=== PATIENT | female | born 1960 | race American Indian/Alaskan Native ===

== ENCOUNTER 2021-11-21 05:44 | Day surgery (SDC) | payer BC ==
[2021-11-16 11:06] LABS: BUN/Creatinine Ratio 26; Blood Urea Nitrogen 26 mg/dL (7-17); Calcium 9.4 mg/dL (8.4-10.2); Hemolysis Index 1
[2021-11-16 11:37] LABS: Hematocrit 39.2 % (30.3-42.9); Hemoglobin 12.5 gm/dl (10.1-14.3); Mean Corpuscular HGB Conc 32 % (30-34); Mean Corpuscular Volume 83 fl (79-97); Platelet Count 333 K/mm3 (140-440); Red Blood Count 4.73 M/mm3 (3.65-5.03); Red Cell Distribution Width 14.8 % (13.2-15.2)
[2021-11-21] MEDS ORDERED: BACTERIOSTATIC SODIUM CHLORIDE 0.9% 30 ML VIAL INFILTRATI ONE (06:36)
[2021-11-21] MEDS ORDERED: LACTATED RINGERS 1,000 ML IV SCH (07:00)
[2021-11-21] MEDS ORDERED: SCOPOLAMINE TRANSDERMAL PATCH 72 HR TD NR (07:12)
--- NOTE | 2021-11-21 07:20 | Anesthesia Consultation ---
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 No FHAC.
--- NOTE | 2021-11-21 07:21 | Anesthesia Day of Surgery ---
Anesthesia Day of Surgery - Day of Surgery Patient Examined: Yes Patient H&P Reviewed: Yes Patient is NPO: Yes
[2021-11-21] MEDS ORDERED: SCOPOLAMINE TRANSDERMAL PATCH 72 HR TD ONE (07:30)
[2021-11-21] MEDS ORDERED: LIDOCAINE MPF (2%) 20 MG/1 ML VIAL 5 ML ONE (07:32)
[2021-11-21] MEDS ORDERED: dexAMETHasone 20 MG/5 ML VIAL ONE (07:32)
[2021-11-21] MEDS ORDERED: ONDANSETRON 4 MG/2 ML INJ ONE ×2 (07:32→10:40)
[2021-11-21] MEDS ORDERED: propofoL 200 MG/20 ML VIAL IV ONE (07:33)
[2021-11-21] MEDS ORDERED: HYDROmorphone 1 MG/1 ML INJ ONE (07:33)
[2021-11-21] MEDS ORDERED: ePHEDrine SULFATE 50 MG/1 ML INJ ONE (07:36)
[2021-11-21] MEDS ORDERED: BUPIVACAINE-EPINEPHRINE/PF 0.5%-1:200,000 (30 ML) VIAL INFILTRATI ONE (07:41)
[2021-11-21] MEDS ORDERED: BUPIVACAINE/PF (0.5%) 5 MG/1 ML 30 ML VIAL INFILTRATI ONE ×2 (07:41→08:21)
[2021-11-21] MEDS ORDERED: EPINEPHrine/PF 1 MG/1 ML INJ ONE (07:42)
[2021-11-21] MEDS ORDERED: FAMOTIDINE 20 MG/2 ML INJ IV ONE (07:54)
[2021-11-21] MEDS ORDERED: MIDAZOLAM 2 MG/2 ML INJ ONE (07:55)
[2021-11-21] MEDS ORDERED: ceFAZolin/STERILE WATER 2 GM/20 ML SYRINGE IV NR (08:00)
[2021-11-21] MEDS ORDERED: EPINEPHrine/PF 1 MG/1 ML INJ IV ONE (08:22)
[2021-11-21] MEDS ORDERED: SODIUM CHLORIDE 0.9% IRRIG SOLN 3000 ML IR ONE (08:22)
[2021-11-21] MEDS ORDERED: fentaNYL 100 MCG/2 ML INJ ONE (08:37)
--- NOTE | 2021-11-21 09:44 | Discharge Summary ---
Short Stay Discharge Plan Activity: no restrictions Weight Bearing Status: Weight Bear as Tolerated Diet: regular Wound: change dressing (Remove dressing in 48 hours) Follow up with: JODI RAYA [Other] - 7 Days MARY KRUEGER II, MD [Staff Physician] - 14 Days
--- NOTE | 2021-11-21 10:26 | Operative Report ---
DATE OF SURGERY: 11/21/2021 PREOPERATIVE DIAGNOSIS: Left knee lateral meniscus tear. POSTOPERATIVE DIAGNOSIS: Left knee lateral meniscus tear. PROCEDURE PERFORMED: Left knee partial lateral meniscectomy. SURGEON: Benji Ramos II, MD. FACE MAN: None. ANESTHESIA: General. COMPLICATIONS: None. DRAINS: None. SPECIMENS: None. TOURNIQUET TIME: 40 minutes. INDICATIONS: The patient is a 61-year-old female who has been having refractory pain in the left knee, including mechanical symptoms such as locking. After failing conservative treatment and obtaining an MRI scan the patient was noted to have a bucket handle tear of the lateral meniscus. It was recommended the patient undergo surgical management. Risks, benefits and limitations of surgery were discussed with the patient including bleeding, infection, injury to nerves, blood vessels, need for reoperation. The patient appeared to understand the risks and consented to undergo surgery. OPERATIVE FINDINGS: Include a displaced bucket handle tear of the discoid lateral meniscus. The medial meniscus appeared normal. 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 TECHNIQUE: In the preoperative holding area, site was marked with surgical marking pen. Extremity was prepped and draped in sterile fashion in a supine position. Standard anteromedial and anterolateral portals were placed and diagnostic arthroscopy was performed. The patellofemoral joint was noted to have grade 2 chondromalacia. The medial compartment appeared to be normal. ACL and PCL were intact. Lateral meniscus was visualized. There was noted to be a tear of the lateral meniscus. This was a horizontal tear. There was what appeared to be a previous discoid meniscus. The tear was reducible back into the back of the joint. There was noted to be some grade 2 chondromalacia of lateral tibial plateau. Decision was made to perform a lateral meniscectomy using an oscillating shaver and biter. The meniscus was debrided back to a stable rim. The arthroscope was then removed. Incisions were closed with 3-0 nylon. Portal sites were injected with 0.25% Marcaine plain. Arthroscope was removed. POSTOPERATIVE PLAN: The patient will be weightbear as tolerated. Physical therapy worked on range of motion exercises. I will see the patient back for a followup visit 2 weeks postop. TID: [id number] RECEIPT: [id number] ASI/DSD
[2021-11-21] MEDS ORDERED: ONDANSETRON 4 MG/2 ML INJ IV ONE (10:44)
[2021-11-21 11:25] VITALS: BP 134/58
--- NOTE | 2021-11-21 14:23 | Post Anesthesia Evaluation ---
- Post Anesthesia Evaluation Patient Participated: Yes Airway Patent: Yes Stable Respiratory Function: Yes Nausea/Vomiting: No Temp > 96.8F: Yes Pain Manageable: Yes Adequeate Hydration: Yes Anesthesia Complications: No
== END 2021-11-21 11:15 | disposition home or self-care (01) ==
LOC: OR 05:44
PROVIDERS: ATTEND Orthopaedic Surgery Sports Medicine
DX: S83.282A Other tear of lateral meniscus, current injury, left knee, initial encounter (principal); E78.00 Pure hypercholesterolemia, unspecified; I10 Essential (primary) hypertension; E66.9 Obesity, unspecified; E11.9 Type 2 diabetes mellitus without complications; Z20.822 Contact with and (suspected) exposure to COVID-19; Z79.899 Other long term (current) drug therapy; Z88.8 Allergy status to other drugs, medicaments and biological substances; Z79.4 Long term (current) use of insulin; Z79.82 Long term (current) use of aspirin; Z98.41 Cataract extraction status, right eye; Z90.49 Acquired absence of other specified parts of digestive tract; Z68.34 Body mass index [BMI] 34.0-34.9, adult; Z90.710 Acquired absence of both cervix and uterus; Z98.890 Other specified postprocedural states; X58.XXXA Exposure to other specified factors, initial encounter; Y93.89 Activity, other specified; Y92.89 Other specified places as the place of occurrence of the external cause; Y99.8 Other external cause status
CPT/HCPCS: 29881; 36415; 80048; 82962; 85027; J0171; J0690; J1100; J1170; J2250; J2405; J2704; J3010; J3490; J7120; U0003